=== PATIENT | female | born 1945 | race Caucasian/White ===

== ENCOUNTER 2022-08-30 09:37 | Outpatient (CLI) | payer MEDICARE, SELFPAY ==
[2022-08-30 14:15] LABS: Creatinine Urine 28.8 mg/dL
[2022-08-30 14:16] LABS: Albumin* 4.2 g/dL (3.3-5.0); Chloride* 105 mmol/L (96-114); Sodium* 141 mmol/L (135-149)
[2022-08-30 14:17] LABS: Potassium* 4.6 mmol/L (3.6-5.1)
[2022-08-30 14:18] LABS: Cholesterol* 105 mg/dL (90-199)
[2022-08-30 14:19] LABS: Alanine Aminotransferase* 19 U/L (4-35); Alkaline Phosphatase* 35 U/L (40-150); Aspartate Amino Transferase* 25 U/L (12-35); Bilirubin Total* 0.2 mg/dL (0.1-1.5); Blood Urea Nitrogen* 21 mg/dL (7-30); Carbon Dioxide* 26 mmol/L (20-32); Creatinine* 1.5 mg/dL (0.5-1.5); Estimated Glomerular Filt Rate 36 ml/min; Glucose* 78 mg/dL (60-115); Microalbumin Creatinine Ratio 130 mg/g (0-30); Microalbumin Urine 4 mg/dL; Total Protein* 6.7 g/dL (6.0-8.3); Triglycerides* 116 mg/dL (40-149)
[2022-08-30 14:20] LABS: Calcium* 9.3 mg/dL (8.4-10.6); HDL Cholesterol* 55 mg/dL (>=50); LDL Cholesterol Calculated 27 mg/dL (<100)
[2022-08-30 15:06] LABS: Vitamin B12* 504 pg/mL (243-894)
== END 2022-08-30 09:38 | disposition home or self-care (01) ==
PROVIDERS: PCP Physician Assistant Medical; Visit Provider Family Medicine
DX: E11.9 Type 2 diabetes mellitus without complications (principal); E78.5 Hyperlipidemia, unspecified; I10 Essential (primary) hypertension; N18.30 Chronic kidney disease, stage 3 unspecified; R53.83 Other fatigue
CPT/HCPCS: 80053; 80061; 82043; 82570; 82607; 84443

== ENCOUNTER 2022-11-20 08:48 | Outpatient (CLI) | payer MEDICARE, SELFPAY ==
[2022-11-20 14:09] LABS: Albumin* 4.1 g/dL (3.3-5.0); Chloride* 106 mmol/L (96-114); Potassium* 5.1 mmol/L (3.6-5.1); Sodium* 142 mmol/L (135-149)
[2022-11-20 14:12] LABS: Alanine Aminotransferase* 23 U/L (4-35); Aspartate Amino Transferase* 27 U/L (12-35); Blood Urea Nitrogen* 29 mg/dL (7-30); Carbon Dioxide* 27 mmol/L (20-32); Creatinine* 1.5 mg/dL (0.5-1.5); Estimated Glomerular Filt Rate 36 ml/min; Glucose* 120 mg/dL (60-115); Phosphorus* 4.2 mg/dL (2.5-4.5)
[2022-11-20 14:13] LABS: Calcium* 9.6 mg/dL (8.4-10.6)
[2022-11-20 14:28] LABS: Creatinine Urine 108.2 mg/dL
[2022-11-20 14:32] LABS: Microalbumin Creatinine Ratio 90 mg/g (0-30); Microalbumin Urine 10 mg/dL
[2022-11-20 15:25] LABS: Ferritin* 79.1 ng/mL (11.1-264.0)
[2022-11-23 03:02] LABS: Iron* 71 ug/dL (37-170)
[2022-11-23 03:11] LABS: Percent Iron Saturation 20 % (20-50); Total Iron Binding Capacity 353 ug/dL (265-497)
== END 2022-11-20 08:49 | disposition home or self-care (01) ==
PROVIDERS: PCP Family Medicine; Visit Provider Family Medicine
DX: D64.9 Anemia, unspecified (principal); I10 Essential (primary) hypertension; N18.30 Chronic kidney disease, stage 3 unspecified; E11.9 Type 2 diabetes mellitus without complications
CPT/HCPCS: 80069; 82043; 82570; 82728; 83540; 83550; 84450; 84460; 87086

== ENCOUNTER 2023-02-15 08:38 | Outpatient (CLI) | payer MEDICARE, SELFPAY ==
--- NOTE | 2023-02-15 09:10 | W.ANESCHARGE ---
Anesthesia Charges Start Date/Time Anesthesia Start Date: 02/15/23 Anesthesia Start Time: 10:03 Stop Date/Time Anesthesia Stop Date: 02/15/23 Anesthesia Stop Time: 10:34 Summary Extremes of Age - Over 70 or under 1: MDA
--- NOTE | 2023-02-15 10:39 | W.ANESCHARGE ---
Anesthesia Charges Start Date/Time Anesthesia Start Date: 02/15/23 Anesthesia Start Time: 10:03 Stop Date/Time Anesthesia Stop Date: 02/15/23 Anesthesia Stop Time: 10:34
== END 2023-02-15 08:39 | disposition home or self-care (01) ==
LOC: OP CLINIC 08:39
PROVIDERS: PCP Family Medicine; Visit Provider Surgery
DX: Z12.11 Encounter for screening for malignant neoplasm of colon (principal); K63.5 Polyp of colon; Z85.038 Personal history of other malignant neoplasm of large intestine; Z98.0 Intestinal bypass and anastomosis status
CPT/HCPCS: 45385; 811; 88305; 99100; J2704

== ENCOUNTER 2023-05-09 09:36 | Outpatient (CLI) | payer MEDICARE, SELFPAY | END 2023-05-09 09:37 | disposition home or self-care (01) | PROVIDERS: PCP Family Medicine; Visit Provider Family Medicine | DX: I10 Essential (primary) hypertension (principal); E11.9 Type 2 diabetes mellitus without complications; R10.9 Unspecified abdominal pain | CPT/HCPCS: 80053; 82150; 83690 ==

== ENCOUNTER 2023-09-05 14:51 | Outpatient (CLI) | payer MEDICARE, SELFPAY | END 2023-09-05 14:52 | disposition home or self-care (01) | LOC: NFLDREF 09-12 10:59 | PROVIDERS: PCP Family Medicine; Referring Provider Family Medicine; Visit Provider Family Medicine | DX: E11.9 Type 2 diabetes mellitus without complications (principal); E78.5 Hyperlipidemia, unspecified; I10 Essential (primary) hypertension; N18.30 Chronic kidney disease, stage 3 unspecified; R05.9 Cough, unspecified; M81.0 Age-related osteoporosis without current pathological fracture | CPT/HCPCS: 80061; 80069; 82043; 82570; 82728; 83540; 83550; 84550; 87086 ==

== ENCOUNTER 2024-02-21 10:31 | Outpatient (CLI) | payer MEDICARE, SELFPAY | END 2024-02-21 10:32 | disposition home or self-care (01) | PROVIDERS: PCP Family Medicine; Visit Provider Family Medicine | DX: E11.22 Type 2 diabetes mellitus with diabetic chronic kidney disease (principal); I12.9 Hypertensive chronic kidney disease with stage 1 through stage 4 chronic kidney disease, or unspecified chronic kidney disease; N18.32 Chronic kidney disease, stage 3b; Z11.59 Encounter for screening for other viral diseases | CPT/HCPCS: 80053; 82043; 82570; 86803 ==

== ENCOUNTER 2024-04-17 14:46 | Outpatient (CLI) | payer MEDICARE, SELFPAY ==
--- NOTE | 2024-04-17 15:30 | CRLHL7_ITS ---
For Patients: As a result of the Cures Act, medical imaging exams and procedure reports are released immediately into your electronic medical record. You may view this report before your referring provider. If you have questions, please contact your health care provider. DXA BONE MINERAL DENSITY STUDY Current height (in): 62.0. Weight (lb): 135.0. Menopause age: 46. Ethnicity: White. Reason for exam: Osteoporosis. 1. Have you had a previous hip or vertebral fracture? No. 2. Have you had any fractures during your adult life which did not result from significant trauma (e.g., auto accident)? No. 3. Did either of your parents have a hip fracture? No. 4. Do you smoke? No. 5. Have you ever taken Glucocorticoids? No. 6. Do you have rheumatoid arthritis? No. 7. Do you have secondary osteoporosis? Yes. 8. Do you drink 3 or more alcoholic drinks per day? No. 9. Are you being treated for osteoporosis? No. 10. Have you ever taken any of the following medications: Actonel, Evista, Fosamax, Miacalcin, Reclast, Boniva, Forteo, HRT (i.e. estrogen/hormone therapy), Protelos, Prolia, Vitamin D, Calcium, other ??? please specify. ANSWER: Yes, Prolia, vitamin D, calcium. 11. Do you have any of the following medical conditions: Anorexia or bulimia, asthma or emphysema, end stage renal disease, hyperparathyroidism, any seizure disorders, cancer, inflammatory bowel diseases, hysterectomy, other ??? please specify. ANSWER: Yes, cancer. 12. What was your maximum height (inches)? 64. 13. Do you perform weight bearing exercise regularly? No. 14. Do you regularly consume dairy products? No. 15. Do you drink caffeinated beverages? No. 16. At what age did your period start? 15. 17. Are you premenopausal? No. 18. How many full-term pregnancies have you had? 0. 19. Have you ever missed your period for more than 6 months in a row (not including or menopause)? No. TECHNIQUE: Bone mineral density study was performed using the [employer]. FINDINGS: The results of the study expressed as bone mineral density (BMD) are as follows: Lumbar spine L2 to L4: BMD: 0.689 g/cm2. T-score: -3.5. Z-score: -0.9. Neck Left: BMD: 0.489 g/cm2. T-score: -3.2. Z-score: -1.1 Right: BMD: 0.581 g/cm2. T-score: -2.4. Z-score: -0.2 Total Left: BMD: 0.596 g/cm2. T-score: -2.8. Z-score: -0.9 Right: BMD: 0.649 g/cm2. T-score: -2.4. Z-score: -0.5 IMPRESSION: Osteoporosis. *Comparison exams done prior to 03/2020 were performed on different unit, [employer]. COMPARISON: Compared with scan of 03/01/22, the bone mineral density has increased by 5.6 percent at the spine and increased by 6.4 percent at the hip. Kishan Whiteside M.D. Diagnostic Radiologist [email or web address] Transcribed: 9:20 am DW/Dictated by: Kishan Whiteside MD @ 04/21/2024 9:05:00 AM (Electronically Signed)
== END 2024-04-17 14:47 | disposition home or self-care (01) ==
LOC: RAD 14:47
PROVIDERS: PCP Family Medicine; Visit Provider Family Medicine
DX: M81.0 Age-related osteoporosis without current pathological fracture (principal)
CPT/HCPCS: 77080

== ENCOUNTER 2024-08-12 08:48 | Outpatient (CLI) | payer MEDICARE, SELFPAY | END 2024-08-12 08:49 | disposition home or self-care (01) | LOC: FRMREF 08:48 | PROVIDERS: PCP Family Medicine; Visit Provider Family Medicine | DX: D64.9 Anemia, unspecified (principal); I10 Essential (primary) hypertension; E11.9 Type 2 diabetes mellitus without complications; N18.30 Chronic kidney disease, stage 3 unspecified; D69.6 Thrombocytopenia, unspecified; I12.9 Hypertensive chronic kidney disease with stage 1 through stage 4 chronic kidney disease, or unspecified chronic kidney disease; E11.22 Type 2 diabetes mellitus with diabetic chronic kidney disease; Z79.84 Long term (current) use of oral hypoglycemic drugs | CPT/HCPCS: 80061; 80069; 82043; 82306; 82570; 82728; 83540; 83550; 83970; 84550; 87086 ==

== ENCOUNTER 2025-01-22 11:17 | Outpatient (CLI) | payer MEDICARE, SELFPAY | END 2025-01-22 11:18 | disposition home or self-care (01) | LOC: FRMREF 11:17 | PROVIDERS: PCP Family Medicine; Visit Provider Family Medicine | DX: H05.20 Unspecified exophthalmos (principal) | CPT/HCPCS: 84443 ==

== ENCOUNTER 2025-05-05 08:54 | Outpatient (CLI) | payer MEDICARE, SELFPAY | END 2025-05-05 08:55 | disposition home or self-care (01) | PROVIDERS: PCP Family Medicine; Visit Provider Family Medicine | DX: E11.22 Type 2 diabetes mellitus with diabetic chronic kidney disease (principal); I12.9 Hypertensive chronic kidney disease with stage 1 through stage 4 chronic kidney disease, or unspecified chronic kidney disease; N18.30 Chronic kidney disease, stage 3 unspecified | CPT/HCPCS: 80053; 82043; 82570 ==